=== PATIENT | female | born 1975 | race Two or more races ===

== ENCOUNTER 2018-05-04 15:45 | Emergency (ER) | payer MEDICAID ==
[~2018-05-04] VITALS: Ht 165.1 cm; Wt 54.0 kg
[2018-05-04] MEDS ORDERED: DIAZEPAM 5 MG TABLET ONE (16:52)
[2018-05-04] MEDS ORDERED: IBUPROFEN 600 MG TABLET PO ONE ×2 (16:53→17:00)
[2018-05-04] MEDS ORDERED: DIAZEPAM 5 MG TABLET PO ONE (17:00)
[2018-05-04 18:21] VITALS: BP 120/80
--- NOTE | 2018-05-04 18:22 | NUR ---
pt for discharge- Aftercare instructions given through [employer]ay [employer] interpreter- Rachel pt verbalized understanding. Home ambulatory in stable condition
== END 2018-05-04 18:24 | disposition home or self-care (01) ==
LOC: ER 15:52
DX: S39.012A Strain of muscle, fascia and tendon of lower back, initial encounter (principal); S29.011A Strain of muscle and tendon of front wall of thorax, initial encounter; F41.0 Panic disorder [episodic paroxysmal anxiety]; V49.59XA Passenger injured in collision with other motor vehicles in traffic accident, initial encounter; Y93.89 Activity, other specified; Y92.410 Unspecified street and highway as the place of occurrence of the external cause; Y99.8 Other external cause status
CPT/HCPCS: 71045-TC; A4606; Z7610

== ENCOUNTER 2019-04-26 17:47 | Emergency (ER) | payer MEDICAID ==
[~2019-04-26] VITALS: Ht 165.1 cm; Wt 55.8 kg
--- NOTE | 2019-04-26 18:06 | NUR ---
URINE SPECIMEN COLLECTED AND SENT TO LAB.
--- NOTE | 2019-04-26 18:12 | NUR ---
NUSRAT VALDEZ AT BEDSIDE FOR EVAL.
[2019-04-26] MEDS ORDERED: KETOROLAC TROMETHAMINE INJ 30 MG/ML VIAL IV ONE (18:30)
[2019-04-26] MEDS ORDERED: CYCLOBENZAPRINE 10 MG TABLET PO ONE (18:30)
[2019-04-26] MEDS ORDERED: IV NS 0.9% 1,000 ML BAG IV ONE (18:30)
[2019-04-26 18:32] LABS: BASOPHILS % (AUTO) 0.3 % (0.0-2.0); EOSINOPHILS % (AUTO) 0.9 % (0.0-6.0); HEMATOCRIT 37 % (33-45); HEMOGLOBIN 12.5 g/dL (11.5-14.8); LYMPHOCYTES % (AUTO) 12.8 % (20.0-44.0); MEAN CORPUSCULAR HGB CONC 34 g/dl (31.0-36.0); MEAN CORPUSCULAR VOLUME 86 fL (82-100); MONOCYTES # (AUTO) 0.8 /CMM (0.1-1.30); NEUTROPHILS # (AUTO) 5.8 /CMM (1.8-8.9); PLATELET COUNT (AUTO) 220 /CMM (150-450); RED BLOOD CELL COUNT(AUTO) 4.27 MIL/uL (4.0-5.2); WHITE BLOOD COUNT (AUTO) 7.6 K/uL (4.3-11.0)
--- NOTE | 2019-04-26 18:35 | NUR ---
IV LINE ESTABLISHED, BLOOD DRAWNED AND SENT TO LAB.
[2019-04-26] MEDS ORDERED: KETOROLAC TROMETHAMINE INJ 30 MG/ML VIAL ONE (18:40)
[2019-04-26] MEDS ORDERED: CYCLOBENZAPRINE 10 MG TABLET ONE (18:40)
[2019-04-26 18:48] LABS: CALCIUM, SERUM 8.7 mg/dL (8.5-10.1); CREATININE 0.8 mg/dL (0.6-1.3); POTASSIUM 3.5 mmol/L (3.5-5.1)
[2019-04-26 18:54] LABS: ALBUMIN 3.6 g/dL (3.4-5.0); BILIRUBIN,DIRECT 0.1 mg/dL (0.0-0.2); BILIRUBIN,TOTAL 0.5 mg/dL (0.2-1.0); TOTAL PROTEIN, SERUM 7.7 g/dL (6.4-8.2)
[2019-04-26] MEDS ORDERED: diphenhydrAMINE HCL 50 MG/ML VIAL IV ONE (20:00)
[2019-04-26] MEDS ORDERED: METOCLOPRAMIDE HCL 10 MG/2 ML VIAL IV ONE (20:00)
[2019-04-26 20:06] LABS: MONOTEST NEGATIVE (NEGATIVE)
[2019-04-26] MEDS ORDERED: diphenhydrAMINE HCL 50 MG/ML VIAL ONE (20:09)
[2019-04-26] MEDS ORDERED: METOCLOPRAMIDE HCL 10 MG/2 ML VIAL ONE (20:09)
[2019-04-26] MEDS ORDERED: DEXAMETHASONE SOD PHOSPHATE 4 MG/ML VIAL IV ONE (21:00)
[2019-04-26] MEDS ORDERED: DEXAMETHASONE SOD PHOSPHATE 10 MG/ML VIAL ONE (21:18)
[2019-04-26] MEDS ORDERED: IOHEXOL-300 100 ML VIAL IV ONE (21:22)
[2019-04-26 21:55] VITALS: BP 117/89
--- NOTE | 2019-04-26 21:55 | NUR ---
Patient discharged to home in stable condition. Written and verbal after care instructions given. Patient verbalizes understanding of instruction.IV removed. Catheter intact and site benign. Pressure and 4x4 applied to site. No bleeding noted.Pt ambulatory with a steady gait
== END 2019-04-26 22:22 | disposition home or self-care (01) ==
LOC: ER 17:47
DX: M54.2 Cervicalgia (principal)
CPT/HCPCS: 36415; 70491; 80048; 80076; 84703; 85025; 86308; 96374; 96375; 99284; J1100; J1200; J1885; J2765; J7030; Q9967